=== PATIENT | male | born 1985 | race Caucasian/White ===

== ENCOUNTER 2019-01-02 10:32 | Emergency (ER) | payer OTHER ==
[2019-01-02 10:42] VITALS: BP 121/71; PULSE 85; TEMP 97.6; BMI 44.1
--- NOTE | 2019-01-02 11:21 | PDOC ---
History of Present Illness - General Chief Complaint: Injury Stated Complaint: Injury Time Seen by Provider: 01/02/19 11:09 History Source: Patient Exam Limitations: No Limitations - History of Present Illness Initial Comments: 01/02/19 11:40 Patient states fell and inverted left ankle. States used some topical creams last night but has continued to swell and is painful. Occurred: reports: yesterday Severity: reports: mild, moderate Pain Location: reports: lower extremity (left ankle inversion ) Modifying Factors: improves with: None Loss of Consciousness: no loss of consciousness Associated Symptoms (Fall): denies symptoms Past History - Travel Traveled outside of the country in the last 30 days: No Close contact w/someone who was outside of country & ill: No - Past Medical History Allergies/Adverse Reactions: Allergies Allergy/AdvReac Type Severity Reaction Status Date / Time No Known Allergies Allergy Verified 01/02/19 10:36 Home Medications: Ambulatory Orders Ibuprofen 600 mg PO Q6H PRN #30 tablet 01/02/19 COPD: No - Suicide/Smoking/Psychosocial Hx Smoking History: Never smoked Have you smoked in the past 12 months: No Information on smoking cessation initiated: No Hx Alcohol Use: No Drug/Substance Use Hx: No Review of Systems - Review of Systems Able to Perform ROS?: Yes Is the patient limited U[place]bek proficient: Yes Constitutional: Yes: Symptoms Reported, See HPI, Malaise Musculoskeletal: Yes: Symptoms Reported, See HPI, Joint Pain (left ankle), Joint Swelling Neurological: Yes: Symptoms reported, See HPI, Tingling, Weakness All Other Systems: Reviewed and Negative *Physical Exam - Vital Signs Last Vital Signs Temp Pulse Resp BP Pulse Ox 97.6 F 85 16 121/71 100 01/02/19 10:32 01/02/19 10:32 01/02/19 10:32 01/02/19 10:32 01/02/19 10:32 - Physical Exam General Appearance: Yes: Nourished, Appropriately Dressed, Apparent Distress, Mild Distress HEENT: positive: WILLIAN, Normal ENT Inspection, TMs Normal, Pharynx Normal Neck: positive: Supple. negative: Tender Musculoskeletal: positive: Normal Inspection Extremity: positive: Tender, Swelling. negative: Normal Range of Motion ( limited range of motion secondary to tenderness to both medial and lateral malleolus, no crepitus or step-offs and some mild tenderness to the fifth metatarsal. 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 Dilip wrap Aircast and crutches provided for pain relief *DC/Admit/Observation/Transfer Diagnosis at time of Disposition: Left ankle sprain Qualifiers: Encounter type: initial encounter Involved ligament of ankle: unspecified ligament Qualified Code(s): S93.402A - Sprain of unspecified ligament of left ankle, initial encounter - Discharge Dispostion Disposition: HOME Condition at time of disposition: Stable Decision to Admit order: No - Referrals Referrals: Alexei Rubio MD [Staff Physician] - - Patient Instructions Printed Discharge Instructions: DI for Ankle Sprain Additional Instructions: Rest, ice to area on and off for 15 minutes 4-6 times a day Avoid heavy lifting or exercise until pain and swelling is resolved or until further directed Keep area highly elevated to reduce swelling Use splints/Dilip wrap as directed Followup with orthopedist in one to 2 days if not improving, if significantly improved may wait one week for followup with orthopedist May use ibuprofen every 6 hours as needed for pain - Post Discharge Activity Forms/Work/School Notes: Back to Work
[2019-01-02] MEDS ORDERED: NAPROXEN 500 MG TABLET (FP) PO ONE (11:55)
== END 2019-01-02 12:17 | disposition home or self-care (01) ==
LOC: JERFT 10:32
PROC: 2W3RX1Z Immobilization of Left Lower Leg using Splint (ICD-10-PCS; principal; 2019-01-02)
DX: S93.402A Sprain of unspecified ligament of left ankle, initial encounter (principal); V68.4XXA Person boarding or alighting a heavy transport vehicle injured in noncollision transport accident, initial encounter; Y92.414 Local residential or business street as the place of occurrence of the external cause; Y93.89 Activity, other specified; Y99.0 Civilian activity done for income or pay
CPT/HCPCS: 73610-TC-LT-FY; 99281-25